=== PATIENT | male | born 1950 | race Caucasian/White ===

== ENCOUNTER 2017-07-10 18:49 | Outpatient (CLI) | payer MEDICARE, OTHER | END 2017-07-10 18:50 | disposition home or self-care (01) | LOC: DI 18:49 | PROVIDERS: ATTEND Specialist | DX: Z53.9 Procedure and treatment not carried out, unspecified reason (principal) ==

== ENCOUNTER 2017-11-14 11:18 | Outpatient (CLI) | payer MEDICARE, OTHER ==
[2017-11-14 11:31] LABS: BASOPHILS % (AUTO) 0.6 %; EOSINOPHILS # (AUTO) 0.1 10^3/uL (0.0-0.7); EOSINOPHILS % (AUTO) 1.9 %; HGB - HEMOGLOBIN 16.6 g/dL (14.0-18.0); LYMPHOCYTES % (AUTO) 43.5 %; MEAN CORPUSCULAR HEMOGLOBIN 31.9 pg (27.0-31.0); MEAN CORPUSCULAR HGB CONC 34.1 g/dL (32.0-36.0); MEAN CORPUSCULAR VOLUME 93.7 fL (80.0-94.0); MEAN PLATELET VOLUME 7.3 fL (7.4-11.4); MONOCYTES # (AUTO) 0.8 10^3/uL (0.0-1.0); NEUTROPHILS # (AUTO) 2.9 10^3/uL (1.5-6.6); PLT - PLATELET COUNT 222 10^3/uL (130-450); RED BLOOD COUNT 5.22 10^6/uL (4.70-6.10); RED CELL DISTRIBUTION WIDTH 13.4 % (12.0-15.0); WHITE BLOOD COUNT 6.9 x10^3/uL (4.8-10.8)
[2017-11-14 13:50] LABS: ALBUMIN/GLOBULIN RATIO 1.4 (1.0-2.2); ALKALINE PHOSPHATASE 38 IU/L (42-121); ALT ALANINE AMINOTRANSFERASE 36 IU/L (10-60); AST ASPARTATE AMINOTRANSFERASE 26 IU/L (10-42); BILIRUBIN,TOTAL 0.6 mg/dL (0.2-1.0); BUN - BLOOD UREA NITROGEN 16 mg/dL (6-20); CALCIUM 9.4 mg/dL (8.5-10.3); CARBON DIOXIDE - CO2 28 mmol/L (21-32); CHLORIDE 102 mmol/L (101-111); CHOL/HDL RATIO 3.9 (<5.0); CHOLESTEROL 143 mg/dL; CREATININE 1.1 mg/dL (0.6-1.2); GFR - MDRD 67 (>89); GLUCOSE 94 mg/dL (70-100); HDL CHOLESTEROL 37 mg/dL; LDL CHOLESTEROL,CALCULATED 74 mg/dL; SODIUM 138 mmol/L (135-145); TOTAL PROTEIN 6.8 g/dL (6.7-8.2); VLDL CHOLESTEROL 32 mg/dL
== END 2017-11-14 11:19 | disposition home or self-care (01) ==
LOC: LAB 11:18
PROVIDERS: ATTEND Internal Medicine
DX: I10 Essential (primary) hypertension (principal); E78.5 Hyperlipidemia, unspecified; G47.33 Obstructive sleep apnea (adult) (pediatric); E66.3 Overweight; N40.0 Benign prostatic hyperplasia without lower urinary tract symptoms; K21.9 Gastro-esophageal reflux disease without esophagitis; Z12.5 Encounter for screening for malignant neoplasm of prostate; Z72.89 Other problems related to lifestyle; Z79.899 Other long term (current) drug therapy
CPT/HCPCS: 36415; 80053; 80061; 85025; G0103; 83721; 84153; 84443; 86803

== ENCOUNTER 2017-11-15 11:13 | Outpatient (CLI) | payer MEDICARE, OTHER ==
[2017-11-16 13:43] LABS: HEPATITIS C ANTIBODY NON-REACTIVE (NON-REACTIVE)
== END 2017-11-15 11:14 | disposition home or self-care (01) ==
LOC: LAB 11:13
PROVIDERS: ATTEND Internal Medicine
DX: G47.33 Obstructive sleep apnea (adult) (pediatric) (principal); I10 Essential (primary) hypertension; E66.3 Overweight; K21.9 Gastro-esophageal reflux disease without esophagitis; N40.0 Benign prostatic hyperplasia without lower urinary tract symptoms; E78.5 Hyperlipidemia, unspecified; Z79.899 Other long term (current) drug therapy
CPT/HCPCS: 84443; 86803

== ENCOUNTER 2017-12-18 14:35 | Outpatient (CLI) | payer MEDICARE, OTHER ==
[2017-12-18 14:54] LABS: BASOPHILS # (AUTO) 0.1 10^3/uL (0.0-0.1); BASOPHILS % (AUTO) 0.8 %; EOSINOPHILS # (AUTO) 0.2 10^3/uL (0.0-0.7); EOSINOPHILS % (AUTO) 2.7 %; HGB - HEMOGLOBIN 15.6 g/dL (14.0-18.0); LYMPHOCYTES # (AUTO) 2.6 10^3/uL (1.5-3.5); LYMPHOCYTES % (AUTO) 33.7 %; MEAN CORPUSCULAR HEMOGLOBIN 32.5 pg (27.0-31.0); MEAN CORPUSCULAR HGB CONC 34.2 g/dL (32.0-36.0); MEAN CORPUSCULAR VOLUME 94.9 fL (80.0-94.0); MEAN PLATELET VOLUME 7.2 fL (7.4-11.4); MONOCYTES % (AUTO) 12.9 %; NEUTROPHILS # (AUTO) 3.8 10^3/uL (1.5-6.6); NEUTROPHILS % (AUTO) 49.9 %; PLT - PLATELET COUNT 236 10^3/uL (130-450); RED BLOOD COUNT 4.79 10^6/uL (4.70-6.10); RED CELL DISTRIBUTION WIDTH 13.1 % (12.0-15.0); WHITE BLOOD COUNT 7.7 x10^3/uL (4.8-10.8)
[2017-12-18 15:18] LABS: ALBUMIN 3.7 g/dL (3.2-5.5); ALBUMIN/GLOBULIN RATIO 1.1 (1.0-2.2); BILIRUBIN,TOTAL 0.8 mg/dL (0.2-1.0); CALCIUM 9.2 mg/dL (8.5-10.3)
== END 2017-12-18 14:36 | disposition home or self-care (01) ==
LOC: LAB 14:35
PROVIDERS: ATTEND Internal Medicine Gastroenterology
DX: Z01.812 Encounter for preprocedural laboratory examination (principal); I10 Essential (primary) hypertension
CPT/HCPCS: 36415; 80053; 85025; 93005

== ENCOUNTER 2018-01-03 07:25 | Day surgery (SDC) | payer MEDICARE, OTHER ==
[2018-01-03] MEDS ORDERED: LACTATED RINGERS 1,000 ML IV ONE (08:00)
[2018-01-03] MEDS ORDERED: PROPOFOL 200 MG/20 ML VIAL IVP ONE (09:00)
[2018-01-03] MEDS ORDERED: LIDOCAINE-MPF 2% 5 ML VIAL IM ONE (09:00)
[2018-01-03 09:24] VITALS: BP 115/62
--- NOTE | 2018-01-03 16:18 | ANESTHESIA ---
Pre-Anesthesia VS, & Labs Vital Signs: Temp Pulse Resp BP Pulse Ox 36.4 C L 68 16 115/62 98 01/03/18 09:23 01/03/18 09:23 01/03/18 09:23 01/03/18 09:23 01/03/18 09:23 Height 5 ft 6 in Weight (kg) 132.6 kg Home Medications and Allergies Home Medications: Ambulatory Orders Medication Instructions Recorded Confirmed Aspirin [Aspirin EC] 81 mg PO DAILY 01/01/18 01/03/18 Atenolol 25 mg PO DAILY 01/01/18 01/01/18 Levothyroxine [Synthroid] 100 mcg PO QDAC 01/01/18 01/01/18 Lovastatin 40 mg PO DAILY 01/01/18 01/01/18 Multivitamin [Multiple Vitamins] 1 each PO DAILY 01/01/18 01/03/18 Omeprazole [PriLOSEC] 20 mg PO DAILY 01/01/18 01/01/18 Allergies/Adverse Reactions: Allergies Allergy/AdvReac Type Severity Reaction Status Date / Time No Known Drug Allergies Allergy Verified 01/03/18 08:02 Anes History & Medical History - Medical History Cardiovascular: reports: Hypertension, High cholesterol Pulmonary: reports: Sleep apnea, CPAP use Gastrointestinal: reports: GERD Urinary: reports: Benign prostate hypertrophy Musculoskeletal: reports: Other Endocrine/Autoimmune: reports: HyPOthyroidism - Surgical History General: Other Dermatologic: Skin grafts
== END 2018-01-03 07:26 | disposition home or self-care (01) ==
LOC: SDS 07:25
PROVIDERS: ATTEND Internal Medicine Gastroenterology
PROC: 0DBL8ZZ Excision of Transverse Colon, Via Natural or Artificial Opening Endoscopic (ICD-10-PCS; 2018-01-03)
PROC: 0DBN8ZZ Excision of Sigmoid Colon, Via Natural or Artificial Opening Endoscopic (ICD-10-PCS; 2018-01-03)
PROC: 0DBC8ZX Excision of Ileocecal Valve, Via Natural or Artificial Opening Endoscopic, Diagnostic (ICD-10-PCS; principal; 2018-01-03 08:15)
DX: Z12.11 Encounter for screening for malignant neoplasm of colon (principal); D12.3 Benign neoplasm of transverse colon; K63.5 Polyp of colon; G47.30 Sleep apnea, unspecified; E66.01 Morbid (severe) obesity due to excess calories; K57.30 Diverticulosis of large intestine without perforation or abscess without bleeding; I10 Essential (primary) hypertension; E66.9 Obesity, unspecified; K21.9 Gastro-esophageal reflux disease without esophagitis; Z87.891 Personal history of nicotine dependence; Z79.899 Other long term (current) drug therapy; Z79.82 Long term (current) use of aspirin; Z68.42 Body mass index [BMI] 45.0-49.9, adult
CPT/HCPCS: 45380; J7120

== ENCOUNTER 2019-08-06 13:12 | Outpatient (CLI) | payer MEDICARE, OTHER ==
[2019-08-06 13:36] LABS: BASOPHILS # (AUTO) 0.1 10^3/uL (0.0-0.1); BASOPHILS % (AUTO) 0.8 %; EOSINOPHILS # (AUTO) 0.1 10^3/uL (0.0-0.7); EOSINOPHILS % (AUTO) 1.3 %; HGB - HEMOGLOBIN 16.1 g/dL (14.0-18.0); LYMPHOCYTES # (AUTO) 2.8 10^3/uL (1.5-3.5); LYMPHOCYTES % (AUTO) 39.1 %; MEAN CORPUSCULAR HEMOGLOBIN 31.9 pg (27.0-31.0); MEAN CORPUSCULAR HGB CONC 33.5 g/dL (32.0-36.0); MEAN CORPUSCULAR VOLUME 95.4 fL (80.0-94.0); MONOCYTES # (AUTO) 0.7 10^3/uL (0.0-1.0); MONOCYTES % (AUTO) 10.1 %; NEUTROPHILS # (AUTO) 3.4 10^3/uL (1.5-6.6); NEUTROPHILS % (AUTO) 48.3 %; PLT - PLATELET COUNT 203 10^3/uL (130-450); RED BLOOD COUNT 5.04 10^6/uL (4.70-6.10); RED CELL DISTRIBUTION WIDTH 12.6 % (12.0-15.0); WHITE BLOOD COUNT 7.1 x10^3/uL (4.8-10.8)
[2019-08-06 13:57] LABS: ALBUMIN 4.1 g/dL (3.2-5.5); ALBUMIN/GLOBULIN RATIO 1.4 (1.0-2.2); ALKALINE PHOSPHATASE 37 IU/L (42-121); ALT ALANINE AMINOTRANSFERASE 41 IU/L (10-60); AST ASPARTATE AMINOTRANSFERASE 30 IU/L (10-42); BILIRUBIN,TOTAL 0.6 mg/dL (0.2-1.0); BUN - BLOOD UREA NITROGEN 13 mg/dL (6-20); CALCIUM 9.3 mg/dL (8.5-10.3); CARBON DIOXIDE - CO2 28 mmol/L (21-32); CHLORIDE 104 mmol/L (101-111); CHOLESTEROL 153 mg/dL; CREATININE 1.1 mg/dL (0.6-1.2); GFR - MDRD 66 (>89); GLUCOSE 101 mg/dL (70-100); HDL CHOLESTEROL 38 mg/dL; LDL CHOLESTEROL,CALCULATED 89 mg/dL; LDL/HDL RATIO 2.3 (<3.6); SODIUM 140 mmol/L (135-145); TOTAL PROTEIN 7.1 g/dL (6.7-8.2); VLDL CHOLESTEROL 26 mg/dL
[2019-08-06 14:12] LABS: HB2 TOTAL 16.6 g/dL; HEMOGLOBIN A1C 0.62 g/dL; HEMOGLOBIN A1C % 5.6 % (4.6-6.2)
[2019-08-06 14:28] LABS: PSA SCREEN (Z12.5) 1.07 ng/mL (0.000-2.000)
[2019-08-06 14:32] LABS: FREE T3 3.08 pg/mL (2.5-3.9)
[2019-08-06 14:33] LABS: THYROID STIMULATING HORMONE 3.83 uIU/mL (0.34-5.60)
[2019-08-06 14:35] LABS: FREE T4 (FREE THYROXINE) 0.99 ng/dL (0.58-1.64)
== END 2019-08-06 13:13 | disposition home or self-care (01) ==
LOC: LAB 13:12
PROVIDERS: ATTEND Family Medicine
DX: G47.33 Obstructive sleep apnea (adult) (pediatric) (principal); E03.9 Hypothyroidism, unspecified; E66.01 Morbid (severe) obesity due to excess calories; M19.90 Unspecified osteoarthritis, unspecified site; K21.9 Gastro-esophageal reflux disease without esophagitis; N40.0 Benign prostatic hyperplasia without lower urinary tract symptoms; E78.5 Hyperlipidemia, unspecified; I10 Essential (primary) hypertension; Z12.5 Encounter for screening for malignant neoplasm of prostate
CPT/HCPCS: 36415; 80053; 80061; 83036; 84439; 84443; 84481; 85025; G0103; 83721; 84153

== ENCOUNTER 2020-08-18 08:00 | Outpatient (CLI) | payer MEDICARE, OTHER ==
[2020-08-18 18:14] LABS: BASOPHILS # (AUTO) 0.1 10^3/uL (0.0-0.1); BASOPHILS % (AUTO) 0.7 %; EOSINOPHILS # (AUTO) 0.1 10^3/uL (0.0-0.7); EOSINOPHILS % (AUTO) 1.3 %; HCT - HEMATOCRIT 50.2 % (42.0-52.0); HGB - HEMOGLOBIN 16.4 g/dL (14.0-18.0); LYMPHOCYTES # (AUTO) 2.5 10^3/uL (1.5-3.5); LYMPHOCYTES % (AUTO) 35.8 %; MEAN CORPUSCULAR HGB CONC 32.7 g/dL (32.0-36.0); MEAN CORPUSCULAR VOLUME 97.9 fL (80.0-94.0); MEAN PLATELET VOLUME 9.7 fL (7.4-11.4); MONOCYTES # (AUTO) 0.8 10^3/uL (0.0-1.0); MONOCYTES % (AUTO) 11.3 %; NEUTROPHILS # (AUTO) 3.5 10^3/uL (1.5-6.6); NEUTROPHILS % (AUTO) 50.6 %; PLT - PLATELET COUNT 240 10^3/uL (130-450); RED BLOOD COUNT 5.13 10^6/uL (4.70-6.10); RED CELL DISTRIBUTION WIDTH 12.7 % (12.0-15.0)
[2020-08-18 18:43] LABS: THYROID STIMULATING HORMONE 3.98 uIU/mL (0.34-5.60)
[2020-08-18 18:45] LABS: ALBUMIN 4.3 g/dL (3.2-5.5); ALBUMIN/GLOBULIN RATIO 1.4 (1.0-2.2); ALKALINE PHOSPHATASE 45 IU/L (42-121); ALT ALANINE AMINOTRANSFERASE 48 IU/L (10-60); AST ASPARTATE AMINOTRANSFERASE 34 IU/L (10-42); BUN - BLOOD UREA NITROGEN 16 mg/dL (6-20); CARBON DIOXIDE - CO2 30 mmol/L (21-32); CHLORIDE 102 mmol/L (101-111); CHOLESTEROL 158 mg/dL; CREATININE 1.1 mg/dL (0.6-1.2); FREE T3 3.1 pg/mL (2.5-3.9); FREE T4 (FREE THYROXINE) 1.03 ng/dL (0.58-1.64); GFR - MDRD 66 (>89); GLUCOSE 90 mg/dL (70-100); HDL CHOLESTEROL 40 mg/dL; LDL CHOLESTEROL,CALCULATED 88 mg/dL; LDL/HDL RATIO 2.2 (<3.6); POTASSIUM 4.5 mmol/L (3.5-5.0); SODIUM 141 mmol/L (135-145); TOTAL PROTEIN 7.4 g/dL (6.7-8.2); TRIGLYCERIDES 149 mg/dL; VLDL CHOLESTEROL 30 mg/dL
== END 2020-08-18 23:59 | disposition home or self-care (01) ==
LOC: LAB.WCP 08:00
PROVIDERS: ATTEND Family Medicine
DX: I10 Essential (primary) hypertension (principal); E03.9 Hypothyroidism, unspecified; N40.0 Benign prostatic hyperplasia without lower urinary tract symptoms; E78.5 Hyperlipidemia, unspecified; E66.01 Morbid (severe) obesity due to excess calories; K21.9 Gastro-esophageal reflux disease without esophagitis; G47.33 Obstructive sleep apnea (adult) (pediatric); M19.90 Unspecified osteoarthritis, unspecified site
CPT/HCPCS: 36415; 80053; 80061; 83721; 84153; 84439; 84443; 84481; 85025

== ENCOUNTER 2021-07-08 08:00 | Outpatient (CLI) | payer MEDICARE, OTHER ==
--- NOTE | 2021-07-08 16:26 | XRAY Report ---
PROCEDURE: Knee 3 View LT INDICATIONS: LEFT KNEE JOINT PAIN TECHNIQUE: 3 views of the left knee(s) were acquired. COMPARISON: None. FINDINGS: BONES/JOINT: No acute, displaced fracture or dislocation. Small suprapatellar joint effusion. A super ior patellar enthesophyte is seen. Calcification in this particular location of the MCL, compatible r emote injury. SOFT TISSUES: No significant abnormality. IMPRESSION: 1.No acute osseous abnormality. Reviewed by: Cullen Yang MD on 07/08/2021 4:25 PM PST Approved by: Cullen Yang MD on 07/08/2021 4:25 PM PST Station ID: [id number]
== END 2021-07-08 23:59 | disposition home or self-care (01) ==
LOC: DI.N 08:00
PROVIDERS: ATTEND Physician Assistant
DX: M25.562 Pain in left knee (principal)

== ENCOUNTER 2021-07-11 07:00 | Outpatient (CLI) | payer MEDICARE, OTHER ==
[2021-07-11 18:44] LABS: BASOPHILS # (AUTO) 0.1 10^3/uL (0.0-0.1); BASOPHILS % (AUTO) 0.8 %; EOSINOPHILS # (AUTO) 0.2 10^3/uL (0.0-0.7); EOSINOPHILS % (AUTO) 2.6 %; HGB - HEMOGLOBIN 15.7 g/dL (14.0-18.0); MEAN CORPUSCULAR HEMOGLOBIN 32.1 pg (27.0-31.0); MEAN CORPUSCULAR HGB CONC 32.7 g/dL (32.0-36.0); MEAN CORPUSCULAR VOLUME 98.2 fL (80.0-94.0); MEAN PLATELET VOLUME 10.1 fL (7.4-11.4); MONOCYTES # (AUTO) 0.7 10^3/uL (0.0-1.0); MONOCYTES % (AUTO) 10.7 %; NEUTROPHILS # (AUTO) 3.3 10^3/uL (1.5-6.6); NEUTROPHILS % (AUTO) 53.6 %; PLT - PLATELET COUNT 204 10^3/uL (130-450); RED BLOOD COUNT 4.89 10^6/uL (4.70-6.10); RED CELL DISTRIBUTION WIDTH 12.8 % (12.0-15.0); WHITE BLOOD COUNT 6.1 x10^3/uL (4.8-10.8)
[2021-07-11 19:11] LABS: ALBUMIN 3.7 g/dL (3.2-5.5); ALBUMIN/GLOBULIN RATIO 1.2 (1.0-2.2); BILIRUBIN,TOTAL 0.8 mg/dL (0.2-1.0); CALCIUM 9.1 mg/dL (8.5-10.3); CREATININE 1.1 mg/dL (0.6-1.2); POTASSIUM 4.4 mmol/L (3.5-5.0); TOTAL PROTEIN 6.7 g/dL (6.7-8.2)
== END 2021-07-11 23:59 | disposition home or self-care (01) ==
LOC: LAB.WCP 07:00
PROVIDERS: ATTEND Nurse Practitioner
DX: R06.02 Shortness of breath (principal)
CPT/HCPCS: 36415; 80053; 83880; 85025; 85379

== ENCOUNTER 2021-08-13 14:30 | Outpatient (CLI) | payer MEDICARE, OTHER ==
--- NOTE | 2021-08-13 16:17 | Ultrasound Report ---
PROCEDURE: Duplex Ext Veins Bilateral INDICATIONS: Mild degenerative pain, limb swelling, leg TECHNIQUE: Real-time imaging, as well as color and pulse Doppler interrogation, were performed of the deep veins of both legs from the inguinal ligament to the popliteal fossa. COMPARISON: None FINDINGS: The deep veins are normally compressible, and free of intraluminal thrombus. Color and pu lse Doppler demonstrate normal phasic intravascular flow. There is normal augmentation response to d istal compression maneuver. IMPRESSION: No findings of deep venous thrombosis are seen. Reviewed by: Dewey Smallwood MD on 08/13/2021 3:[address] [facility] Approved by: Dewey Smallwood MD on 08/13/2021 3:[address] [facility] Station ID: [id number]
== END 2021-08-13 14:31 | disposition home or self-care (01) ==
LOC: DI 14:30
PROVIDERS: ATTEND Nurse Practitioner
DX: M25.562 Pain in left knee (principal); M70.88 Other soft tissue disorders related to use, overuse and pressure other site; M79.606 Pain in leg, unspecified
CPT/HCPCS: 93970

== ENCOUNTER 2021-08-23 13:37 | Outpatient (CLI) | payer MEDICARE, OTHER ==
--- NOTE | 2021-08-23 17:00 | MRI Report ---
PROCEDURE: Knee LT W/O INDICATIONS: LEFT KNEE JOINT PAIN, LIMB SWELLING, LEG PAIN TECHNIQUE: Noncontrast sagittal PD fast spin echo and T2 fast spin echo with fat saturation, sagittal 3-D gradie nt sequence with fat saturation; coronal T1 spin echo and PD fast spin echo with fat saturation, and axial PD fast spin echo with fat saturation through the knee. COMPARISON: None. FINDINGS: Image quality: Degraded by body habitus Menisci: Medial extrusion of the medial meniscus. Radial tearing of the posterior horn medial meniscu s at the meniscal root ligament insertion site. Linear oblique high signal intensity within the media l meniscal body, demonstrating inferior articular surface extension. Radial tearing of the free edge of the lateral meniscal body. Cruciate ligaments: The anterior and posterior cruciate ligaments appear intact. Medial structures: The medial collateral ligament appears intact. Visualized portions of the pes ans erinus tendons appear normal. No abnormal bursal fluid. Lateral structures: The lateral collateral ligament, long and short heads of the biceps femoris tend on appear intact. The popliteus tendon appears normal. Iliotibial band appears normal. Anterior structures: The quadriceps and patellar tendons appear intact. Patellar alignment is aspen l. No femoral trochlear dysplasia or ventral trochlear prominence. No edema in the infrapatellar fa t pad. Bones and cartilage: No bone marrow contusions or fractures. Moderate articular cartilage loss diffu sely overlies the weightbearing aspects of the medial femoral condyle and medial tibial plateau. Joint space: There is physiologic knee joint fluid. No Del Real's cyst. Normal appearing synovial pli are incidentally noted. IMPRESSION: 1. Medial and lateral meniscal tearing. 2. Tricompartmental osteophyte is with associated articular cartilage loss. Reviewed by: Dante Baxter MD on 08/23/2021 4:59 PM PST Approved by: Dante Baxter MD on 08/23/2021 4:59 PM PST Station ID: [id number]
== END 2021-08-23 13:38 | disposition home or self-care (01) ==
LOC: DI 13:37
PROVIDERS: ATTEND Nurse Practitioner
DX: S83.242A Other tear of medial meniscus, current injury, left knee, initial encounter (principal); S83.282A Other tear of lateral meniscus, current injury, left knee, initial encounter; M25.762 Osteophyte, left knee; M94.8X6 Other specified disorders of cartilage, lower leg

== ENCOUNTER 2021-09-21 09:58 | Outpatient (CLI) | payer MEDICARE, OTHER ==
[2021-09-21 12:50] LABS: ESTIMATED AVERAGE GLUCOSE 117 mg/dL (70-100); HEMOGLOBIN A1c% 5.7 % (4.27-6.07)
[2021-09-21 13:01] LABS: BASOPHILS % (AUTO) 0.6 %; EOSINOPHILS # (AUTO) 0.2 10^3/uL (0.0-0.7); HCT - HEMATOCRIT 45.9 % (42.0-52.0); HGB - HEMOGLOBIN 15.7 g/dL (14.0-18.0); LYMPHOCYTES # (AUTO) 2.6 10^3/uL (1.5-3.5); LYMPHOCYTES % (AUTO) 38.2 %; MEAN CORPUSCULAR HEMOGLOBIN 32.9 pg (27.0-31.0); MEAN CORPUSCULAR HGB CONC 34.2 g/dL (32.0-36.0); MEAN CORPUSCULAR VOLUME 96.2 fL (80.0-94.0); MEAN PLATELET VOLUME 9.9 fL (7.4-11.4); MONOCYTES # (AUTO) 0.8 10^3/uL (0.0-1.0); MONOCYTES % (AUTO) 11.8 %; NEUTROPHILS # (AUTO) 3.1 10^3/uL (1.5-6.6); NEUTROPHILS % (AUTO) 46.1 %; PLT - PLATELET COUNT 212 10^3/uL (130-450); RED BLOOD COUNT 4.77 10^6/uL (4.70-6.10); RED CELL DISTRIBUTION WIDTH 12.7 % (12.0-15.0); WHITE BLOOD COUNT 6.7 x10^3/uL (4.8-10.8)
[2021-09-21 13:08] LABS: ALBUMIN/GLOBULIN RATIO 1.3 (1.0-2.2); ALKALINE PHOSPHATASE 39 IU/L (42-121); ALT ALANINE AMINOTRANSFERASE 41 IU/L (10-60); AST ASPARTATE AMINOTRANSFERASE 32 IU/L (10-42); BILIRUBIN,TOTAL 0.8 mg/dL (0.2-1.0); BUN - BLOOD UREA NITROGEN 19 mg/dL (6-20); CALCIUM 9.2 mg/dL (8.5-10.3); CARBON DIOXIDE - CO2 29 mmol/L (21-32); CHLORIDE 102 mmol/L (101-111); CHOL/HDL RATIO 3.9 (<5.0); CHOLESTEROL 156 mg/dL; CREATININE 1.1 mg/dL (0.6-1.2); GFR - MDRD 66 (>89); GLUCOSE 104 mg/dL (70-100); HDL CHOLESTEROL 40 mg/dL; LDL CHOLESTEROL,CALCULATED 91 mg/dL; LDL/HDL RATIO 2.3 (<3.6); POTASSIUM 4.5 mmol/L (3.5-5.0); SODIUM 138 mmol/L (135-145); TOTAL PROTEIN 7.1 g/dL (6.7-8.2); TRIGLYCERIDES 127 mg/dL; VLDL CHOLESTEROL 25 mg/dL
[2021-09-21 13:13] LABS: THYROID STIMULATING HORMONE 7.99 uIU/mL (0.34-5.60)
[2021-09-21 13:14] LABS: FREE T3 3.25 pg/mL (2.5-3.9)
[2021-09-21 13:15] LABS: FREE T4 (FREE THYROXINE) 0.88 ng/dL (0.58-1.64)
== END 2021-09-21 09:59 | disposition home or self-care (01) ==
LOC: LAB.N 09:58
PROVIDERS: ATTEND Family Medicine
DX: E03.9 Hypothyroidism, unspecified (principal); R73.9 Hyperglycemia, unspecified; R06.01 Orthopnea; M23.204 Derangement of unspecified medial meniscus due to old tear or injury, left knee; M23.201 Derangement of unspecified lateral meniscus due to old tear or injury, left knee; G47.39 Other sleep apnea; E66.01 Morbid (severe) obesity due to excess calories; K21.9 Gastro-esophageal reflux disease without esophagitis; E78.5 Hyperlipidemia, unspecified; I10 Essential (primary) hypertension; R60.0 Localized edema
CPT/HCPCS: 36415; 80053; 80061; 83036; 83721; 83880; 84439; 84443; 84481; 85025

== ENCOUNTER 2021-09-21 10:05 | Outpatient (CLI) | payer MEDICARE, OTHER ==
--- NOTE | 2021-09-21 10:45 | XRAY Report ---
PROCEDURE: Chest 2 View X-Ray INDICATIONS: ORTHOPNEA TECHNIQUE: 2 view(s) of the chest. COMPARISON: None. FINDINGS: SUPPORT DEVICES: None. LUNGS/PLEURA: No focal consolidation, pleural effusion or space-occupying pneumothorax. MEDIASTINUM: The cardiomediastinal silhouette is within normal limits. BONES/SOFT TISSUES: No acute abnormality. IMPRESSION: 1.No acute cardiopulmonary abnormality. Reviewed by: Cullen Yang MD on 09/21/2021 10:43 AM PDT Approved by: Cullen Yang MD on 09/21/2021 10:43 AM PDT Station ID: [id number]
== END 2021-09-21 10:06 | disposition home or self-care (01) ==
LOC: DI.N 10:05
PROVIDERS: ATTEND Family Medicine
DX: R06.1 Stridor (principal); E03.9 Hypothyroidism, unspecified; R73.9 Hyperglycemia, unspecified; M23.204 Derangement of unspecified medial meniscus due to old tear or injury, left knee; M23.201 Derangement of unspecified lateral meniscus due to old tear or injury, left knee; G47.39 Other sleep apnea; E66.01 Morbid (severe) obesity due to excess calories; K21.9 Gastro-esophageal reflux disease without esophagitis; E78.5 Hyperlipidemia, unspecified; I10 Essential (primary) hypertension; R06.00 Dyspnea, unspecified
CPT/HCPCS: 36415; 80053; 80061; 83036; 83721; 83880; 84439; 84443; 84481; 85025

== ENCOUNTER 2021-12-05 13:51 | Outpatient (CLI) | payer MEDICARE, OTHER ==
--- NOTE | 2021-12-05 21:30 | SLEEP CARE CONSULTATION ---
Information from patient questionnaire entered by Orlando Dodson MA. I have reviewed and concur with the information entered by Orlando Dodson MA. This document represents the service I personally performed and the decisions made by me, Beti Chaves MD, [facility]. History of Present Illness Service Date and Time: 12/05/2021 1351 Reason for Visit: New patient (ONSET 06/2009. ON CPAP, [facility] 02/28/2018, ), Other (NEEDS NEW MACHINE) Date of Onset: 10 YEARS Usual bedtime: 11 PM Time it takes to fall asleep: 5-10 MINUTES Observed to quit breathing while asleep: Yes Sleeps alone due to snoring: No Number of times waking at night: 1- 2 X Reasons for waking at night: reports: Bathroom Toss, Turn, or Twitch while sleeping: Yes Recalls having dreams: No Usually gets out of bed at: 0700 0800 Feels refreshed in the morning: Yes Morning headache: No Sleepy or fatigued during the day: No Ever fallen asleep while driving: Yes Takes day naps: No Dreams during day naps: No Prior sleep studies: Yes Additional HPI information: I had the pleasure of seeing Mr. Sinha today regarding obstructive sleep apnea-hypopnea. As you know, he is a 70-year-old gentleman who was diagnosed with the sleep-disordered breathing at [facility] in [place] on 01/05/2016. The AHI was 16.0. The marizol oxygen saturation was 87%. He was prescribed a CPAP device set at 13 cmH2O. He uses every night and all night. The compliance data show usage in 172 out of the past 180 nights, 8.3 hours a night. The residual AHI is 1.2 and average air leak is 6.2 L/minute. He wears a ResMed P10 nasal pillows. He gets his supplies from [facility]. He finds the treatment very beneficial. He recently acquired a ResMed AirSense 11 but has not used it yet because he has not received any instruction and is not sure if it is set on the correct setting. - Parasomnia Symptoms Ever been unable to move upon waking from sleep: No Walks in sleep: No Talks in sleep: No Ever acted out dreams in sleep: No Ever felt weak in the knees when startled or emotional: No Bothered by creepy, crawly, restless sensations in legs: No Problems with memory or concentration: No Subjective Initial [place] Sleepiness Scale score: 4 (12/05/2021) Past Medical History Past Medical History: reports: Hypertension, Arthritis, Other (ACID FREFLUX, TROUBLE URINATING, HIGH CHOLESTEROL) Social History The patient's occupation is a RE. Patient is and lives in [place]. Have you smoked in the past 12 months: No Alcohol use: No Caffeine use: No Family History Family history of sleep disordered breathing: Yes Family Hx Sleep Apnea: Sibling: Sleep apnea - Untreated Allergies and Home Medications Drug allergies reviewed: Yes Home medication list reviewed: Yes Allergy and home medication list: Allergies No Known Drug Allergies Allergy (Verified 01/03/18 08:02) Review of Systems Review of systems same as previous: Yes (TAKES THYROID RX SEE LIST OF MEDS) Cardiovascular: reports: high blood pressure, leg or foot swelling Respiratory: reports: shortness of breath Gastrointestinal: reports: heartburn, difficulty swallowing Urinary: reports: incontinence Neurological: denies: headaches, seizure, head trauma, disorientation, speech dysfunction, gait or balance problems, fainting or unconsciousness, other Psychiatric: denies: Attention Deficit Hyperactivity, anxiety, depression, mood disorder, claustrophobia, other Ear/Nose/Throat: reports: wisdom teeth removed Endocrine: reports: unexplained weakness Musculoskeletal: denies: joint pain, neck pain, back pain, joint swelling, muscle pain or cramping, mobility problems, other Immunologic: denies: sneezing, rash, itching, allergies to food or environment, other Physical Exam Vital signs obtained and entered by: Magdy DODSON CMA [facility] Blood Pressure: 140/78 (RESP 22, PULSE 69, LEFT) Heart Rate: 70 O2 Saturation: 94 Height: 5 ft 6 in Weight: 300 lb Body Mass Index: 48.4 BMI Classification: Morbidly Obese Mood/affect: normal HEENT: No craniofacial malformation Nostrils: patent to airflow Turbinates: normal Septum: midline Mouth and throat: narrow oropharynx Soft palate: long Hard palate: normal Uvula: normal Uvula visualization: 50% Mallampati Class II Tongue: normal in size Tonsils: small Chin and jaw: normal size and position Neck: normal w/o lymphadenopathy or thyromegaly Heart: regular rate and rhythm Lungs: clear bilaterally Extremities: no edema or clubbing Neurologic: intact Impression and Plan IMPRESSION: 1. Obstructive Sleep Apnea-Hypopnea Syndrome, moderate, as previously diagnosed. He has excellent compliance. The current pressure setting appears effective and comfortable. Narrow oropharynx and obesity are common predisposing factors for obstructive sleep apnea-hypopnea syndrome. I turned his new ResMed AirSense 11 and it is set at 13 cmH2O. Plan: 1. Start using his new ResMed AirSense 11. 2. Try other nasal pillows and masks. I gave him names of new ones. 3. Attempt to lose weight. 4. Return for follow up in a year or earlier if there is any problem or if he requires a compliance download from his new machine. [employer] has given us access to his [employer] account. Follow up with Sleep Care in: 1 year Visit Type: In Office Time Spent with Patient (minutes): 15 Provider Statement: I spent 100% of the Face to Face Visit with the patient with greater than 50% spent counseling the patient and coordination of care.
[2021-12-05 21:31] VITALS: BP 140/78
== END 2021-12-05 13:52 | disposition home or self-care (01) ==
LOC: SC 13:51
PROVIDERS: ATTEND Internal Medicine Pulmonary Disease
DX: G47.33 Obstructive sleep apnea (adult) (pediatric) (principal); E66.01 Morbid (severe) obesity due to excess calories; Z68.42 Body mass index [BMI] 45.0-49.9, adult
CPT/HCPCS: 99202; G0463; 99212

== ENCOUNTER 2022-11-06 09:05 | Outpatient (CLI) | payer MEDICARE, OTHER ==
[2022-11-06 12:15] LABS: CALCIUM 9.4 mg/dL (8.5-10.3); CREATININE 1.2 mg/dL (0.6-1.2); POTASSIUM 4.5 mmol/L (3.5-5.0)
[2022-11-06 12:24] LABS: ESTIMATED AVERAGE GLUCOSE 114 mg/dL (70-100); HEMOGLOBIN A1c% 5.6 % (4.27-6.07)
[2022-11-06 12:36] LABS: FREE T3 2.86 pg/mL (2.5-3.9)
[2022-11-06 12:38] LABS: THYROID STIMULATING HORMONE 3.48 uIU/mL (0.34-5.60)
[2022-11-06 12:39] LABS: FREE T4 (FREE THYROXINE) 0.95 ng/dL (0.58-1.64)
== END 2022-11-06 09:06 | disposition home or self-care (01) ==
LOC: LAB.N 09:05
PROVIDERS: ATTEND Family Medicine
DX: I10 Essential (primary) hypertension (principal); R73.9 Hyperglycemia, unspecified; R06.01 Orthopnea; G47.30 Sleep apnea, unspecified; E03.9 Hypothyroidism, unspecified; E66.01 Morbid (severe) obesity due to excess calories
CPT/HCPCS: 36415; 80048; 83036; 84439; 84443; 84481

== ENCOUNTER 2023-01-08 14:56 | Outpatient (CLI) | payer MEDICARE, OTHER ==
--- NOTE | 2023-01-08 15:39 | SLEEP CARE CONSULTATION ---
Information from patient questionnaire entered by Ajay Choe. I have reviewed and concur with the information entered by Ajay Choe. This document represents the service I personally performed and the decisions made by me, Beti Chaves MD, [facility]. History of Present Illness Service Date and Time: 01/08/2023 1456 Reason for follow up: annual (LAST SEEN 11/2021) Equipment type: CPAP (RESMED) Prior sleep studies: Yes HPI additional information: Mr. Sinha was diagnosed to have moderate obstructive sleep apnea-hypopnea syndrome and returns today for follow up of CPAP therapy. The patient purchased the device from [employer] and was fitted with ResMed P10 nasal pillows. He uses the device nightly and all through the night. The compliance report shows that he uses the device 177 nights out of the past 180 nights, averaging 7.8 hours a night. He complains of the straps hurting the back and side of his head. He thinks that the pressure of 13 cmH2O is comfortable. On the CPAP therapy he notices improvement in his sleep quality, and that he wakes up feeling fresher in the morning and more awake/alert during the day. Randall Sleepiness Scale score is 4. The average residual AHI is 2.0; and average air leak is 4.9 L/minute. Sleep Study - Results Prior sleep studies: Yes CPAP Compliance Data - Data Reviewed with Patient Average duration of nightly device use: 7HRS 43MIN Compliance rate %: 95 (07/08/22-01/03/23) Current pressure setting (cmH2O): 13-FULLTIME Average residual AHI: 2.0 Subjective Initial Randall Sleepiness Scale score: 4 (12/05/2021) Current Randall Sleepiness Scale score: 4 (01/08/23) Allergies and Home Medications Drug allergies reviewed: Yes Home medication list reviewed: Yes Allergy and home medication list: Allergies No Known Drug Allergies Allergy (Verified 01/05/23 09:45) Review of Systems Review of systems same as previous: Yes Physical Exam Vital signs obtained and entered by: AJAY Valentine MA Blood Pressure: 110/70 (LEFT ARM) Cuff size: long Heart Rate: 68 O2 Saturation: 92 Height: 5 ft 6 in Weight: 317 lb 6.4 oz Body Mass Index: 51.2 BMI Classification: Morbidly Obese Impression and Plan IMPRESSION: 1. Obstructive Sleep Apnea-Hypopnea Syndrome, moderate (AHI was 16 in 2016 at [facility] in [place]) with the patient continuing to do well on nasal CPAP therapy. He has excellent compliance and significant clinical benefits. The current pressure appears effective and comfortable. Overall, he is very satisfied with treatment and plans to continue with it long-term. His heated humidifier appears to be broken because the heater plate does not warm up. PLAN: 1. Continue with autoCPAP set at 13 cm H2O. 2. Bring the machine to [facility] for repair. 3. Use strap guards. 4. Try to lose weight. 5. Return in one year for follow up or earlier if there is any problem with the treatment. Counseling Topics: Weight control Follow up with Sleep Care in: 1 year Visit Type: In Office Time Spent with Patient (minutes): 15 Provider Statement: I spent 100% of the Face to Face Visit with the patient with greater than 50% spent counseling the patient and coordination of care.
[2023-01-08 15:44] VITALS: BP 110/70
== END 2023-01-08 14:57 | disposition home or self-care (01) ==
LOC: SC 14:56
PROVIDERS: ATTEND Internal Medicine Pulmonary Disease
DX: G47.33 Obstructive sleep apnea (adult) (pediatric) (principal); E66.01 Morbid (severe) obesity due to excess calories; Z68.43 Body mass index [BMI] 50.0-59.9, adult
CPT/HCPCS: 99212; G0463

== ENCOUNTER 2023-02-28 16:18 | Outpatient (CLI) | payer MEDICARE, OTHER ==
--- NOTE | 2023-02-28 18:25 | XRAY Report ---
PROCEDURE: Lumbar Spine 2 View INDICATIONS: SCIATICA TECHNIQUE: 3 view(s) of the lumbar spine were acquired. COMPARISON: None. FINDINGS: Bones: 5 [id number] vertebrae are present. There is normal bony alignment. No vertebral body compression fractures. No suspicious bony lesions. Disc space narrowing and sclerotic facet joints noted throughout the exam, particularly in the lower lumbar spine Soft tissues: Overlying bowel gas pattern is normal. No suspicious soft tissue calcifications. Ath erosclerotic vascular calcification. IMPRESSION: Multilevel degenerative disc disease and arthropathy, particularly in the lower lumbar s pine Reviewed by: Murali Brock MD on 02/28/2023 5:24 PM [facility] Approved by: Murali Brock MD on 02/28/2023 5:24 PM [facility] Station ID: [id number]
== END 2023-02-28 16:19 | disposition home or self-care (01) ==
LOC: DI 16:18
PROVIDERS: ATTEND Nurse Practitioner
DX: M54.30 Sciatica, unspecified side (principal); M51.36 Other intervertebral disc degeneration, lumbar region; M47.816 Spondylosis without myelopathy or radiculopathy, lumbar region

== ENCOUNTER 2023-06-19 11:11 | Outpatient (CLI) | payer MEDICARE, OTHER ==
[2023-06-19 11:30] LABS: BASOPHILS # (AUTO) 0.1 10^3/uL (0.0-0.1); BASOPHILS % (AUTO) 0.7 %; EOSINOPHILS # (AUTO) 0.1 10^3/uL (0.0-0.7); EOSINOPHILS % (AUTO) 1.4 %; HCT - HEMATOCRIT 48.7 % (42.0-52.0); HGB - HEMOGLOBIN 16.1 g/dL (14.0-18.0); LYMPHOCYTES # (AUTO) 2.8 10^3/uL (1.5-3.5); LYMPHOCYTES % (AUTO) 39.7 %; MEAN CORPUSCULAR HEMOGLOBIN 32.1 pg (27.0-31.0); MEAN CORPUSCULAR HGB CONC 33.1 g/dL (32.0-36.0); MONOCYTES # (AUTO) 0.9 10^3/uL (0.0-1.0); MONOCYTES % (AUTO) 11.9 %; NEUTROPHILS # (AUTO) 3.3 10^3/uL (1.5-6.6); PLT - PLATELET COUNT 224 10^3/uL (130-450); RED BLOOD COUNT 5.02 10^6/uL (4.70-6.10); RED CELL DISTRIBUTION WIDTH 12.8 % (12.0-15.0); WHITE BLOOD COUNT 7.2 x10^3/uL (4.8-10.8)
[2023-06-19 11:42] LABS: ALBUMIN/GLOBULIN RATIO 1.4 (1.0-2.2); ALKALINE PHOSPHATASE 46 IU/L (42-121); ALT ALANINE AMINOTRANSFERASE 47 IU/L (10-60); AST ASPARTATE AMINOTRANSFERASE 30 IU/L (10-42); BILIRUBIN,TOTAL 0.9 mg/dL (0.2-1.0); BUN - BLOOD UREA NITROGEN 19 mg/dL (6-20); CALCIUM 9.4 mg/dL (8.5-10.3); CARBON DIOXIDE - CO2 33 mmol/L (21-32); CHLORIDE 101 mmol/L (101-111); CHOLESTEROL 155 mg/dL; CREATININE 1.3 mg/dL (0.6-1.3); GFR - MDRD 54 (>89); GLUCOSE 116 mg/dL (74-104); HDL CHOLESTEROL 39 mg/dL; LDL CHOLESTEROL,CALCULATED 91 mg/dL; LDL/HDL RATIO 2.3 (<3.6); POTASSIUM 4.1 mmol/L (3.5-4.5); SODIUM 138 mmol/L (135-145); TOTAL PROTEIN 6.8 g/dL (6.4-8.9); TRIGLYCERIDES 127 mg/dL (48-352); VLDL CHOLESTEROL 25 mg/dL
[2023-06-19 11:55] LABS: THYROID STIMULATING HORMONE 5.77 uIU/mL (0.34-5.60)
[2023-06-19 20:52] LABS: ESTIMATED AVERAGE GLUCOSE 123 mg/dL (70-100); HEMOGLOBIN A1c% 5.9 % (4.27-6.07)
== END 2023-06-19 11:12 | disposition home or self-care (01) ==
LOC: LAB 11:11
PROVIDERS: ATTEND Family Medicine
DX: I27.81 Cor pulmonale (chronic) (principal); R73.9 Hyperglycemia, unspecified; M25.762 Osteophyte, left knee; R06.02 Shortness of breath; M54.16 Radiculopathy, lumbar region; E03.9 Hypothyroidism, unspecified; E66.01 Morbid (severe) obesity due to excess calories; G47.33 Obstructive sleep apnea (adult) (pediatric); K21.9 Gastro-esophageal reflux disease without esophagitis; Z12.5 Encounter for screening for malignant neoplasm of prostate
CPT/HCPCS: 36415; 80053; 80061; 83036; 84439; 84443; 85025; G0103; 83721; 84153